=== PATIENT | female | born 1970 | race Caucasian/White ===

== ENCOUNTER → 2018-01-17 15:49 | Outpatient (CLI) | payer BC, SELFPAY ==
[2018-01-17 16:06] LABS: Basophils % 0.8 % (0.1-2.0); Eosinophils # 0.1 K/mm3 (0.0-0.4); Eosinophils % 2.1 % (0.1-12.0); Hemoglobin 12.1 g/dL (12.2-16.2); Lymphocytes # 1.7 K/mm3 (0.7-4.5); Lymphocytes % 32.6 K/mm3 (10-50); Mean Corpuscular HGB Conc 32.8 g/dL (31.8-35.4); Mean Corpuscular Hemoglobin 29.6 pg (27.0-31.2); Mean Corpuscular Volume 90.1 fl (81-99); Mean Platelet Volume 8.6 fl (7.4-10.4); Monocytes # 0.2 K/mm3 (0.1-1.0); Monocytes % 3.6 % (1.7-9.3); Neutrophils # 3.2 K/mm3 (1.8-7.8); Platelet Count 231 K/mm3 (142-424); Red Cell Distribution Width 15.2 % (11.5-17.5); White Blood Count 5.3 K/mm3 (4.8-10.8)
[2018-01-17 17:49] LABS: Hemoglobin A1C 5.1 % (0.0-7.0)
[2018-01-17 17:59] LABS: Alanine Aminotransferase 22 U/L (12-78); Albumin Level 3.4 gm/dL (3.4-5.0); Albumin/Globulin Ratio 1.1 (1.1-1.8); Alkaline Phosphatase 101 U/L (46-116); Anion Gap 11.9 mEq/L (5-15); Aspartate Amino Transferase 14 U/L (15-37); Bilirubin,Total 0.7 mg/dL (0.2-1.0); Blood Urea Nitrogen 7 mg/dL (7-18); Calcium 8.8 mg/dL (8.5-10.1); Carbon Dioxide 27 mmol/L (21.0-32.0); Chloride 109 mmol/L (98-107); Chol/HDL Ratio 2.9 (1-3.5); Cholesterol 166 mg/dL (140-200); Creatinine,Serum 0.76 mg/dL (0.55-1.02); Estimated Glomerular Filt Rate 82 ml/min (>60); GFR (African American) 99 ML/MIN (>60); Globulin 3.1 gm/dl (1.3-3.2); Glucose 77 mg/dL (74-106); HDL Cholesterol 58 mg/dL (29-89); LDL Cholesterol 93 mg/dL (0-130); Potassium 3.9 mmoL/L (3.5-5.1); Sodium 144 mmol/L (136-145); Total Protein,Serum 6.5 gm/dL (6.4-8.2); Triglycerides 73 mg/dL (30-200); VLDL Cholesterol 15 mg/dL (0-40)
== END ==
PROVIDERS: Nurse Practitioner Family; PCP Emergency Medicine; Visit Provider Emergency Medicine
DX: Z00.00 Encounter for general adult medical examination without abnormal findings (principal); Z13.220 Encounter for screening for lipoid disorders
CPT/HCPCS: 36415; 80053; 80061; 83036; 85025

== ENCOUNTER → 2018-09-04 18:43 | Outpatient (CLI) | payer BC, SELFPAY ==
--- NOTE | 2018-09-04 19:07 | XR_ITS ---
XR foot wt bearing RT 3V HISTORY: ITS.REASON: foot pain ORDERING PHYSICIAN: Red Jean Baptiste APRN PATIENT AGE: 47 years COMPARISON: None FINDINGS: No fracture or dislocation. No lytic or blastic change. There is normal mineralization.. The joint spaces are well-preserved. No significant degenerative/arthritic changes. No erosive changes evident. IMPRESSION: Negative, no acute finding
--- NOTE | 2018-09-04 19:07 | XR_ITS ---
XR foot wt bearing LT 3V HISTORY: Left foot pain ITS.REASON: foot pain ORDERING PHYSICIAN: Red Jean Baptiste APRN PATIENT AGE: 47 years COMPARISON: None FINDINGS: There is minimal hallux valgus with bony hypertrophic change at the distal aspect of the first metatarsal and mild soft tissue swelling consistent with bunion formation. No fracture or dislocation. No lytic or blastic change. IMPRESSION: Mild hallux valgus with bunion formation
== END ==
PROVIDERS: PCP Nurse Practitioner Family; Visit Provider Nurse Practitioner Family
DX: M79.671 Pain in right foot (principal); M79.672 Pain in left foot
CPT/HCPCS: 73630

== ENCOUNTER → 2018-12-31 16:50 | Outpatient (CLI) | payer BC, SELFPAY ==
--- NOTE | 2018-12-31 16:52 | MM_ITS ---
PROCEDURE: MM DIG SCREENING MAMM BI W/CAD CLINICAL INDICATION: Screening There is no personal or family history of breast cancer COMPARISON: DIG MAMMO BILAT SCREENING from 10/29/2012 DMDB DIG MAMM-DX INDIRA from 01/10/2016 DMSB DIG MAMM-SCREEN INDIRA W/CAD from 02/13/2017 TECHNIQUE: Standard CC and MLO images were obtained. R2 CAD reviewed. FINDINGS: Prominent somewhat heterogenic fibroglandular densities are seen in both breasts. Again noted is an asymmetric area of glandular tissue outer quadrant left breast which is stable. There is a stable density lower right axilla likely a node basically unchanged in appearance from previous studies. There are couple of stable benign-appearing microcalcifications near the nipple right breast. There is no suspicious lesion in either breast and no suspicious microcalcifications. IMPRESSION: Moderately dense parenchymal pattern with no suspicious lesions seen BI-RAD Category: 2 Benign Finding(s) FOLLOW-UP: 1YR 1 Year Follow-up (A letter has been sent to the patient regarding results of the study.) Dictated by: Dr. Edwardo Humphrey MD 01/03/2019 11:[address] Edwardo Humphrey MD in [facility] 01/03/2019 11:28
== END ==
PROVIDERS: PCP Nurse Practitioner Family; Visit Provider Emergency Medicine
DX: Z12.39 Encounter for other screening for malignant neoplasm of breast (principal)
CPT/HCPCS: 77067

== ENCOUNTER → 2019-06-17 13:23 | Outpatient (CLI) | payer BC, SELFPAY ==
--- NOTE | 2019-06-17 13:26 | XR_ITS ---
PROCEDURE: XR ANKLE WT BEARING LT MIN 3V CLINICAL INDICATION: left bunion pain, SPV COMPARISON: No exams were available for comparison FINDINGS: There is no acute fracture or dislocation. Ankle mortise is intact. IMPRESSION: No acute findings. Dictated by: Vern Quinonez 06/17/2019 15:04 Electronically signed by Vern Quinonez in [facility] 06/17/2019 15:04
--- NOTE | 2019-06-17 13:26 | XR_ITS ---
PROCEDURE: XR FOOT WT BEARING LT 3V CLINICAL INDICATION: left bunion pain, SPV COMPARISON: No exams were available for comparison FINDINGS: No fracture or dislocation. No lytic or blastic change. There is normal mineralization. There is mild osteoarthritis at the 1st metatarsophalangeal joint. No significant degenerative/arthritic changes. No erosive changes evident. Other findings:Soft tissue prominence is noted over the medial aspect of the distal 1st metatarsal. IMPRESSION: No acute findings. Dictated by: Vern Quinonez 06/17/2019 15:05 Electronically signed by Vern Quinonez in [facility] 06/17/2019 15:05
== END ==
PROVIDERS: PCP Nurse Practitioner Family; Visit Provider Nurse Practitioner
DX: M79.672 Pain in left foot (principal); M79.671 Pain in right foot
CPT/HCPCS: 73610; 73630

== ENCOUNTER → 2019-06-20 16:33 | Outpatient (CLI) | payer BC, SELFPAY ==
--- NOTE | 2019-06-20 | XR_ITS ---
PROCEDURE: XR CHEST 2V Patient Age:48Y CLINICAL HISTORY: TOBACCO USE, HYPERTENSION smoker COMPARISON: CXR CHEST(2 VIEWS-NOT PORTABLE) from 07/12/2015 FINDINGS: PA and lateral chest performed The lungs are well expanded and clear with no significant findings and no significant change since June 2015. Cardiac silhouette upper normal in size. Normal pulmonary vascularity.. Superior mediastinum and hilar regions satisfactory The lungs are clear without infiltrates, suspicious nodules, or pleural effusions.. Stable small 5 mm calcified granuloma at the left upper lobe with likely small calcified hilar nodes reflect old granulomatous disease No acute bony abnormalities. Chest wall and T-spine satisfactory and stable intact. IMPRESSION: Stable chest. Lungs clear No active cardiopulmonary disease Dictated by: Charlie Rivera MD 06/21/2019 12:54 Electronically signed by Charlie Rivera MD in [facility] 06/21/2019 12:54
--- NOTE | 2019-06-20 | ECG_ITS ---
APPROVED REPORT Exam: Resting ECG HR:72 bpm ECG Measurements Heart Rate 72 AXES KS 128 P 41 QRSd 92 QRS 76 QT 412 T 62 QTc 451 <Conclusion> Normal sinus rhythm Normal ECG Electronically signed by : Freddy Ruiz, 06/21/2019 13:08:46
[2019-06-20 16:50] LABS: Basophils % 0.6 % (0.1-2.0); Eosinophils # 0.1 K/mm3 (0.0-0.4); Eosinophils % 2.4 % (0.1-12.0); Hematocrit 40.3 % (37.0-47.0); Hemoglobin 13.9 g/dL (12.2-16.2); Lymphocytes # 1.9 K/mm3 (0.7-4.5); Lymphocytes % 34.9 % (10-50); Mean Corpuscular HGB Conc 34.4 g/dL (31.8-35.4); Mean Corpuscular Hemoglobin 31.9 pg (27.0-31.2); Mean Corpuscular Volume 92.8 fl (81-99); Mean Platelet Volume 9.2 fl (7.4-10.4); Monocytes # 0.2 K/mm3 (0.1-1.0); Neutrophils # 3.1 K/mm3 (1.8-7.8); Neutrophils % 58.1 % (37.0-80.0); Platelet Count 229 K/mm3 (142-424); Red Blood Count 4.34 M/mm3 (4.20-5.40); Red Cell Distribution Width 12.8 % (11.5-17.5); White Blood Count 5.3 K/mm3 (4.8-10.8)
[2019-06-20 17:51] LABS: Chloride 106 mmol/L (98-107); Potassium 4.1 mmoL/L (3.5-5.1); Sodium 141 mmol/L (136-145)
[2019-06-20 17:53] LABS: Blood Urea Nitrogen 9 mg/dl (7-17); Estimated Glomerular Filt Rate 89 ml/min (>60); GFR (African American) 108 ML/MIN (>60)
[2019-06-20 17:54] LABS: Alanine Aminotransferase 22 U/L (12-78); Albumin/Globulin Ratio 1.5 (1.1-1.8); Alkaline Phosphatase 78 U/L (38-126); Anion Gap 9.1 mEq/L (5-15); Aspartate Amino Transferase 27 U/L (14-36); Bilirubin,Total 0.4 mg/dl (0.2-1.3); Calcium 9.8 mg/dl (8.4-10.2); Carbon Dioxide 30 mmol/L (22.0-30.0); Globulin 2.6 g/dL (1.3-3.2); Glucose 83 mg/dl (74-100); Total Protein,Serum 6.6 g/dl (6.3-8.2)
[2019-06-24 08:03] LABS: Vitamin D 25 Hydroxy 35.8 ng/mL (30.0-100.0)
== END ==
PROVIDERS: Visit Provider Podiatrist
DX: Z01.818 Encounter for other preprocedural examination (principal)
CPT/HCPCS: 36415; 71046; 80053; 80323; 82652; 85025; 93005

== ENCOUNTER → 2019-06-25 11:06 | Outpatient (CLI) | payer BC, SELFPAY ==
--- NOTE | 2019-06-25 11:06 | MR_ITS ---
PROCEDURE: MR ANKLE LT WO/W CON CLINICAL INDICATION: ankle pain, chronic Posterior tibial tendon dysfunction, hallux valgus ankle instability, surgical, anterior talofibular ligament sprain, ankle sprain COMPARISON: XR FOOT WT BEARING LT 3V from 06/17/2019 TECHNIQUE: Routine multiplanar multi echo sequences are performed without and with gadolinium enhancement. FINDINGS: No bone bruise or fracture is evident. Talar dome has an unremarkable appearance. The ankle mortise is well preserved. On axial STIR image number 11 series 3 there is a faint curvilinear area of increased T2 signal along the lateral aspect of the posterior tibial tendon and could represent a small intrasubstance tear. A complete tear is not present. The flexor digitorum longus, flexor hallucis longus, and peroneal tendons have an unremarkable appearance as does the Achilles tendon as well as the anterior tendons about the ankle. The tibiofibular tendons, ATFL, and PT FL are intact. Deltoid ligament has a somewhat heterogeneous appearance. Sprain or partial tear is a consideration. Spring ligament has an unremarkable appearance. There is a small fluid collection along the posterior aspect of talocalcaneal joint and the anterior tibial talar joint IMPRESSION: 1. Possible partial intrasubstance tear of the posterior tibialis tendon just distal to the tip of the medial malleolar region. 2. There is some heterogeneous signal intensity of the deltoid ligament which could be due to partial tear or sprain. 3. Small ankle joint effusion Dictated by: Janes Salgado MD 06/27/2019 11:01 Electronically signed by Janes Salgado MD in [place] 06/27/2019 11:01
== END ==
PROVIDERS: PCP Nurse Practitioner Family; Visit Provider Podiatrist
DX: G89.29 Other chronic pain (principal); M25.572 Pain in left ankle and joints of left foot; M76.822 Posterior tibial tendinitis, left leg; S93.432S Sprain of tibiofibular ligament of left ankle, sequela
CPT/HCPCS: 73723; A9576

== ENCOUNTER → 2019-09-23 07:06 | Outpatient (CLI) | payer BC, SELFPAY ==
[2019-09-23 08:03] LABS: Basophils % 0.8 % (0.1-2.0); Eosinophils # 0.2 K/mm3 (0.0-0.4); Eosinophils % 2.6 % (0.1-12.0); Hematocrit 38.9 % (37.0-47.0); Hemoglobin 13.4 g/dL (12.2-16.2); Lymphocytes # 1.6 K/mm3 (0.7-4.5); Lymphocytes % 29.2 % (10-50); Mean Corpuscular HGB Conc 34.4 g/dL (31.8-35.4); Mean Corpuscular Hemoglobin 32.5 pg (27.0-31.2); Mean Corpuscular Volume 94.3 fl (81-99); Mean Platelet Volume 8.6 fl (7.4-10.4); Monocytes # 0.3 K/mm3 (0.1-1.0); Neutrophils # 3.5 K/mm3 (1.8-7.8); Neutrophils % 61.5 % (37.0-80.0); Platelet Count 223 K/mm3 (142-424); Red Blood Count 4.13 M/mm3 (4.20-5.40); Red Cell Distribution Width 13.2 % (11.5-17.5); White Blood Count 5.6 K/mm3 (4.8-10.8)
[2019-09-23 09:16] LABS: Coronavirus 19 IgG Antibody Positive (Negative); Coronavirus 19 IgM Antibody Negative (Negative)
[2019-09-23 09:25] LABS: Chloride 106 mmol/L (98-107)
[2019-09-23 09:26] LABS: Sodium 140 mmol/L (136-145)
[2019-09-23 09:28] LABS: Alanine Aminotransferase 36 U/L (12-78); Aspartate Amino Transferase 30 U/L (14-36); Blood Urea Nitrogen 10 mg/dl (7-17); Estimated Glomerular Filt Rate 77 ml/min (>60); GFR (African American) 93 ML/MIN (>60)
[2019-09-23 09:29] LABS: Albumin Level 3.5 g/dl (3.5-5.0); Albumin/Globulin Ratio 1.3 (1.1-1.8); Alkaline Phosphatase 119 U/L (38-126); Bilirubin,Total 0.6 mg/dl (0.2-1.3); Calcium 9.8 mg/dl (8.4-10.2); Carbon Dioxide 31 mmol/L (22.0-30.0); Globulin 2.7 g/dL (1.3-3.2); Glucose 83 mg/dl (74-100); Total Protein,Serum 6.2 g/dl (6.3-8.2)
[2019-09-24 14:33] LABS: Vitamin D 25 Hydroxy 29.5 ng/mL (30.0-100.0)
[2019-10-02 11:56] LABS: Nicotine 23.6
[2019-10-02 11:57] LABS: Cotinine 221.5
== END ==
PROVIDERS: Visit Provider Podiatrist
DX: Z01.818 Encounter for other preprocedural examination (principal)
CPT/HCPCS: 36415; 80053; 80323; 82652; 85025; 86328

== ENCOUNTER 2019-09-24 06:47 | Day surgery (SDC) | payer BC, SELFPAY ==
--- NOTE | 2019-09-19 08:53 | SUR.PREOP ---
09/18/2019--PHONE CALL MADE TO PATIENT. PATIENT UNDERSTANDS THAT LAB WORK AND COVID TESTING NEEDS TO BE COMPLETED @ 0700 ON 09/23/2019. PATIENT UNDERSTANDS IF LAB WORK AND COVID-19 TESTS ARE NOT COMPLETED BY 12PM ON THAT DATE, THE SURGERY SCHEDULED WILL BE CANCELLED AND RESCHEDULED FOR ANOTHER TIME.
[2019-09-23 13:12] VITALS: BMI 27.1
[2019-09-24] VITALS (14 sets, daily range): BP systolic 119–156; BP diastolic 65–91; PULSE 83–103; RESP 12–18; TEMP 36.6–43; O2SAT 91–98
[2019-09-24 07:04] LABS: Adenovirus,PCR Not Detected (NotDetected); Bordetella Pertussis Not Detected (NotDetected); Chlamydophila Pneumoniae, PCR Not Detected (NotDetected); Coronavirus 19, PCR Not Detected (NotDetected); Coronavirus 229E Not Detected (NotDetected); Coronavirus NL63 Not Detected (NotDetected); Coronavirus OC43 Not Detected (NotDetected); Coronovirus HKU1,PCR Not Detected (NotDetected); Human Metapneumovirus Not Detected (NotDetected); Influenza A, PCR Not Detected (NotDetected); Influenza AH1, 2009 Not Detected (NotDetected); Influenza AH1, PCR Not Detected (NotDetected); Influenza AH3,PCR Not Detected (NotDetected); Influenza B, PCR Not Detected (NotDetected); Mycoplasma Pneumoniae, PCR Not Detected (NotDected); Parainfluenza 1, PCR Not Detected (NotDetected); Parainfluenza 2, PCR Not Detected (NotDetected); Parainfluenza 3, PCR Not Detected (NotDetected); Parainfluenza 4, PCR Not Detected (NotDetected); Respiratory Syncytial Virus Not Detected (NotDetected); Rhinovirus/Enterovirus Not Detected (NotDetected)
[2019-09-24 08:51] LABS: HCG Qualitative, Serum Negative (Negative)
--- NOTE | 2019-09-24 10:04 | HMH.OPNOTE ---
Date of procedure: 09/24/19 Pre-op Diagnosis:: 1. Left hallux abductovalgus deformity 2. Left PTTD 3. Left gastrocnemius equinus 4. Left chronic ankle instability 5. Left history of ankle sprain 6. Left pes planus 7. Left equinus contracture 8. Left foot osteoarthritis 9. Left peroneal tendon tear 10. Left ankle cyst Post-op Diagnosis:: Same Procedure performed:: 1. Left Lapidus bunionectomy 2. Left repair posterior tibial tendon tear 3. Left gastrocnemius recession 4. Left foot/ankle synovectomy 5. Left repair of peroneal tendon tear (longus and brevis) 6. Left repair lateral ankle ligaments, modified Brostrum ankle stabilization 7. Left syndesmosis repair/ORIF 8. Left Pablo osteotomy 9. Left autograft harvest 10. Left deltoid ligament repair 11. Left medial ankle arthrotomy 12. Left excision of synovial cyst 13. Left application of amnitoic graft 14. Left application of posterior splint Surgeon:: Maria L Dangelo DPM SCREW CUTTER:: Mahamed Peralta Anesthesia: GETA, regional (L popliteal, saph block) Estimated blood loss (mL): 50 Clinical Note:: Mrs Daniels is a 48F with left hallux valgus, OA, PTTD, equinus, chronic ankle instability. She was scheduled for surgery several months ago but postponed due to COVID. X-rays 3 views left foot and ankle taken 06/17/19 evaluated by myself. Report noted. Hallux valgus deformity with minimal flexion deformity of the toes. Early spurring and degenerative changes noted to the first metatarsal head. There are mild hypertrophic changes at the distal aspect of the 1st metatarsal. Small subchondral cyst is present at the head of the 1st metatarsal. MRI left ankle w/wout contrast: to evaluate for left PTTD, lateral ankle ligaments and surgical planning. Indications: Worsening foot pain, bunion, lateral ankle instability, weakness. Evaluate for sprain/tear to the deltoid, ATFL/CFL and syndesmosis sprain. MRI needed for surgical planning for preop and intraoperative fixation options. We discussed x-rays, and planned left ankle MRI. We discussed conservative versus surgical treatment options. Conservative treatment options include change shoe wear, prefab or custom molded inserts, strapping, taping and padding. She has failed that and NSAIDs, ice and elevate for pain and swelling. The patient has elected to proceed with surgery because they have failed conservative treatment and continue to have pain and worsening symptoms affecting daily activities. The patient has been instructed on the planned procedure, all risk versus benefits of the procedure to include bleeding, infection, nerve and blood vessel damage, need for further surgery, delay in healing of soft tissue or bone, failure of bones to heal, non-union, mal-union, prolonged pain and recovery, prolonged swelling, CRPS/RSD, DVT and anesthetic complications. No guarantees were given. All questions fully answered. The patient verbalized understanding and agreed to proceed with surgery. Written consent was obtained. Medical clearance per PCP, Dr. Jalloh. Necessary labs and pre-op testing ordered: CBC, CMP, EKG, CXR, nicotine, vitamin D. We discussed risks of smoking and its effect on wound and bone healing.We also discussed DVT/PE and her risk factors of immobilization, recommend aspirin daily post op. e-Rx for Zofran 4mg, Motrin 800mg #60, vit D, [place] 7.5/325 (had itching with Percocet). Patient will need crutches. Operative findings:: Equinus contracture noted. Lateral ankle instability with talar tilt and positive anterior drawer. Posterior tibial tendon had a longitudinal tear just proximal and behind the medial malleolus extending distal toward the insertion. Peroneal tendons both the brevis and longus had tears. Longitudinal tear to the longus. The brevis had a split tear with a low-lying muscle belly. Synovitis noted throughout the ankle as well as the tendon sheath. There was a synovial cyst located to the lateral ankle. Cartilage erosion and wear to the medial and lateral t
--- NOTE | 2019-09-24 11:26 | HMH.ANESCL ---
[facility] Anesthesia Checklist - Patient Identification Patient Identification: Arm Band, Verbal (Name & ) - Structural Data Admitted From: Home Planned Operative Procedure/s: Left lapidus bunionectomy, repair posterior tibial tendon, gastroc recessio Consent for Planned Operative Procedure(s) Verified: Yes Verified Documents: Surgical Consent, History and Physical - NPO Status Verified Time NPO: 22:00 - Chart Verification Results Verified: CBC, BMP, HCG - Additional verifications Anesthesia Reactions: No Hx Blood Transfusions: No Blood Transfusion Reaction: No - Airway Assessment C-Spine Mobility Assessed: Yes TMJ Mobility Assessed: Yes Dentition: Dentures-good fit (upper denture, removed) - Neurological Assessment Level of Consciousness: Awake, Alert, Appropriate, Follows Commands Hx Seizures: No Numbness or tingling in extremities: No - Anesthesia Plan Anesthesia Risk discussed: Yes Anesthesia Plan: Verified ASA Class: II Anesthesia Type: General w/block (GA LMA with left popliteal nerve block) [facility] History I have reviewed the patient's past medical history: Yes Medical History: Reports:: Migraine Denies:: Cancer, Diabetes Mellitus Type 1, Diabetes Mellitus Type 2, Internal Pacemaker, MRSA, Seizures *Have you ever received a pneumonia vaccine?: No *Have you received a flu vaccine this season?: Yes Other Medical History: Denies: Blood Transfusion Reaction Anesthesia experience/problems:: none Laterality Cases: Bilateral: Carpal Tunnel Release Other Surgeries: Yes: Tubal Ligation. No: Pacemaker Amputation: No Fractures: No - *Social History Educational Level: Completed GED/General Educational Development Smoking Status: Current every day smoker Tobacco Type: cigarettes # Packs/Day (cigarettes): 1 Alcohol Intake: never Substance Use Type: denies use *Occupational Status:: employed Housing: house Household Members: family *Travel in the last 8 weeks: Inside the [place] Family Hx:: No significant family history
--- NOTE | 2019-09-24 14:00 | XR_ITS ---
PROCEDURE: XR FOOT LT MIN 3V CLINICAL INDICATION: Post op HAV Follow-up surgery COMPARISON: XR FOOT WT BEARING LT 3V from 06/17/2019 XR FOOT LT 2V from 09/24/2019 FINDINGS: Posterior splint is in place. Status post 1st metatarsal tarsal fusion with dorsal bone plate. Transverse screws present at the base of the 1st and 2nd metatarsals. There is good alignment. A metallic staple is present at the distal aspect of the proximal phalanx of the great toe with a lucent defect at this area. IMPRESSION: Postsurgical changes as described above Dictated by: Janes Salgado MD 09/24/2019 16:07 Electronically signed by Janes Salgado MD in [place] 09/24/2019 16:07
--- NOTE | 2019-09-24 14:00 | XR_ITS ---
PROCEDURE: XR ANKLE LT 2V CLINICAL INDICATION: Post op ankle Follow-up surgery COMPARISON: No exams were available for comparison FINDINGS: There is a posterior splint in place. Synchondrosis repair with lateral bone plate at the distal fibula translucent fixator and a metallic button along the medial aspect of the distal tibia with good alignment. IMPRESSION: Good alignment status post synchondrosis repair Dictated by: Janes Salgado MD 09/24/2019 16:06 Electronically signed by Janes Salgado MD in [place] 09/24/2019 16:06
--- NOTE | 2019-09-24 14:42 | XR_ITS ---
PROCEDURE: XR FOOT LT 2V CLINICAL INDICATION: LAPIDUS Follow-up surgery COMPARISON: XR FOOT WT BEARING LT 3V from 06/17/2019 FINDINGS: Fluoroscopy time: 1.64 minutes Status post 1st metatarsal tarsal fusion with dorsal bone plate and transverse screw through the base of the 1st and 2nd metatarsals with good alignment. Medial staple is pleasant at the distal aspect of the proximal phalanx of the great toe. Other findings:Status post synchondrosis repair at the distal tib fib with good alignment IMPRESSION: Postsurgical changes Dictated by: Janes Salgado MD 09/24/2019 14:51 Electronically signed by Janes Salgado MD in [place] 09/24/2019 14:51
[2019-09-24 14:54] LABS: Microscopic,Cath URINE MICROSCOPIC (MICROSCOPIC)
[2019-09-24 15:49] LABS: Appearance,Urine/Cath CLEAR (Clear); Bilirubin,Cath Negative (Negative); Blood, Urine/Cath Negative (Negative); Color,Urine/Cath YELLOW (Yellow); Glucose,Urine/Cath (UA) Negative (Negative); Ketones,Urine/Cath Negative (Negative); Leukocyte Esterase,Cath Negative (Negative); Nitrate,Cath Negative (Negative); Protein,Urine/Cath Negative (Negative); Urobilinogen,Cath 0.2 EU/dl (0.2)
--- NOTE | 2019-09-24 15:50 | HMH.ANESI ---
[facility] Anesthesia Record Part I Intake, IV Amount: 1,400 Estimated blood loss (mL): 50 Urine output (mL): 800 Blood Products used (#): none Blood Pressure: 156/84 SaO2: 94 Pulse Rate: 103 Respiratory Rate: 12 Temperature: 99.5 F Patient is:: Awake, Drowsy, Stable Stable to PACU at:: 15:40
--- NOTE | 2019-09-24 16:31 | PC.NURSE ---
162-detailed report called to DAE Pearson per DAE Moralez 162-pt transported to post op via stretcher w/geni rails up per DAE Moralez, vss, pt stable
[2019-09-24 16:56] LABS: Squamous Epithelial Ur./Cath Occasional #/hpf (0-5); WBC,Urine/Cath Occasional #/hpf (0-3)
--- NOTE | 2019-09-24 21:09 | HMH.ANESII ---
[facility] Anesthesia Record Part II Discharge Time: 17:31 Destination: Home PACU nurse assessment reviewed?: Yes Patient Condition:: Good Anesthesia Complications:: None Swallowing reflex intact?: Yes Cyanosis?: No Blood Pressure: 119/67 Pulse Rate: 83 Temperature: 98.0 F Mental Status: Alert & Oriented Pain level:: 0 Nausea and/or vomitting:: None Intake, IV Amount: 0 Comments:: RR 18, O2sat 95% on RA
== END 2019-09-24 17:31 | disposition home or self-care (01) ==
PROVIDERS: PCP Nurse Practitioner Family; Visit Provider Podiatrist
PROC: (CPT 28298; principal; 2019-09-24 09:45)
DX: M20.12 Hallux valgus (acquired), left foot (principal); M19.072 Primary osteoarthritis, left ankle and foot; M24.572 Contracture, left ankle; M76.822 Posterior tibial tendinitis, left leg; M21.42 Flat foot [pes planus] (acquired), left foot; M25.372 Other instability, left ankle; M21.6X2 Other acquired deformities of left foot; Z72.0 Tobacco use; M66.88 Spontaneous rupture of other tendons, other sites; M24.472 Recurrent dislocation, left ankle
CPT/HCPCS: 28298; 27687; 28288; 27698; 27829; 27625; C5275; 73600; 73620; 73630; 76000; 81001; 84703; 87581; 87633; 87798; 96374; C1713; C1762; C1776; J2405; Q4211

== ENCOUNTER → 2019-10-14 17:42 | Outpatient (CLI) | payer BC, SELFPAY | PROVIDERS: Visit Provider Podiatrist | DX: Z98.890 Other specified postprocedural states (principal) | CPT/HCPCS: 87070; 87077; 87205 ==

== ENCOUNTER → 2019-10-21 10:10 | Outpatient (CLI) | payer BC, SELFPAY ==
--- NOTE | 2019-10-21 10:25 | XR_ITS ---
PROCEDURE: XR FOOT WT BEARING LT 3V CLINICAL INDICATION: post-op COMPARISON: XR FOOT WT BEARING LT 3V from 06/17/2019 XR FOOT LT 2V from 09/24/2019 XR FOOT LT MIN 3V from 09/24/2019 FINDINGS: There is no interval fracture or dislocation. Dorsal plate and screw ankylosis of the 1st metatarsal tarsal joint and a staple within the distal medial cortex of the 1st proximal metatarsal is again noted. A transverse fixation screw is again demonstrated within the proximal diaphyses of the 1st and 2nd digits. Soft tissues are unremarkable. IMPRESSION: Stable postop changes as above. Dictated by: Mike Holman 10/21/2019 13:33 Electronically signed by Mike Holman in [facility] 10/21/2019 13:33
--- NOTE | 2019-10-21 10:25 | XR_ITS ---
PROCEDURE: XR ANKLE WT BEARING LT MIN 3V CLINICAL INDICATION: post-op COMPARISON: XR ANKLE WT BEARING LT MIN 3V from 06/17/2019 XR ANKLE LT 2V from 09/24/2019 FINDINGS: There are no interval changes. Synchondrosis repair with lateral bone plate and distal fibula translucent fixator and a metallic button within the medial aspect of the distal tibia is again noted in good alignment. Ankle mortise is intact. Soft tissues are unremarkable. IMPRESSION: Stable post synchondrosis repair as above Dictated by: Mike Holman 10/21/2019 13:30 Electronically signed by Mike Holman in [facility] 10/21/2019 13:30
== END ==
PROVIDERS: PCP Nurse Practitioner Family; Visit Provider Podiatrist
DX: Z98.890 Other specified postprocedural states (principal); M25.372 Other instability, left ankle
CPT/HCPCS: 73610; 73630

== ENCOUNTER 2019-12-25 16:00 | Outpatient (RCR) | payer BC, MEDICAID, SELFPAY | END 2019-12-25 16:05 | disposition home or self-care (01) | LOC: PT 16:00 | PROVIDERS: PCP Nurse Practitioner Family; Visit Provider Podiatrist | DX: M25.372 Other instability, left ankle; Z98.890 Other specified postprocedural states | CPT/HCPCS: 97110; 97112; 97140; 97163; 97164; 97760 ==

== ENCOUNTER → 2019-12-30 16:47 | Outpatient (CLI) | payer BC, MEDICAID, SELFPAY ==
--- NOTE | 2019-12-30 16:47 | MM_ITS ---
PROCEDURE: MM DIG SCREENING MAMM BI W/CAD Digital Breast Tomosynthesis Included CLINICAL INDICATION: screening There is no personal or family history of breast cancer. Patient currently is on estrogen. COMPARISON: MG DMDB DIG MAMM-DX INDIRA from 01/10/2016 MG DMSB DIG MAMM-SCREEN INDIRA W/CAD from 02/13/2017 MG MM DIG SCREENING MAMM BI W/CAD from 12/31/2018 TECHNIQUE: Standard CC and MLO images and 3D Tomosynthesis was obtained. R2 CAD reviewed. FINDINGS: There is a diffusely dense and somewhat heterogenic parenchymal pattern bilaterally. There are couple of benign-appearing microcalcifications right breast. There is no suspicious lesion in either breast and no suspicious microcalcifications. IMPRESSION: Moderately dense parenchymal pattern with no suspicious lesions seen BI-RAD Category: 2 Benign Finding(s) FOLLOW-UP: 1YR 1 Year Follow-up (A letter has been sent to the patient regarding results of the study.) Dictated by: Dr. Edwardo Humphrey MD 01/01/2020 12:02 Dr. Edwardo Humphrey MD in [place] 01/01/2020 12:02
== END ==
PROVIDERS: PCP Nurse Practitioner Family; Visit Provider Nurse Practitioner Family
DX: Z12.31 Encounter for screening mammogram for malignant neoplasm of breast (principal)
CPT/HCPCS: 77063; 77067

== ENCOUNTER → 2020-02-04 09:31 | Outpatient (CLI) | payer BC, MEDICAID, SELFPAY ==
--- NOTE | 2020-02-04 09:39 | XR_ITS ---
PROCEDURE: XR FOOT WT BEARING LT 3V CLINICAL INDICATION: post-op pain COMPARISON: CR XR FOOT WT BEARING LT 3V from 06/17/2019 CR XR FOOT LT 2V from 09/24/2019 CR XR FOOT LT MIN 3V from 09/24/2019 CR XR FOOT WT BEARING LT 3V from 10/21/2019 FINDINGS: Status post fusion of the 1st metatarsal tarsal joint with medial bone plate and multiple cortical screws. 1 transverse screw extends from the base of the 1st metatarsal laterally almost completely through the proximal aspect of the 2nd metatarsal. There is some minimal blistering of the cortex lateral to this screw hole. This is not significantly changed. There has been osteotomy with a medial staple at the distal aspect of the proximal phalanx of the great toe. Postsurgical changes are present of the ankle is well. There is mild pes planus. IMPRESSION: No change involving the postsurgical changes of the first metatarsal tarsal junction, proximal phalanx great toe, and proximal aspect of the 2nd metatarsal with pes planus Dictated by: Janes Salgado MD 02/04/2020 16:12 Janes Salgado MD in [place] 02/04/2020 16:12
== END ==
PROVIDERS: PCP Nurse Practitioner Family; Visit Provider Podiatrist
DX: Z98.890 Other specified postprocedural states (principal); M79.672 Pain in left foot
CPT/HCPCS: 73630

== ENCOUNTER → 2020-02-05 17:40 | Outpatient (CLI) | payer BC, MEDICAID, SELFPAY ==
[2020-02-05 18:04] LABS: Basophils % 0.3 % (0.1-2.0); Eosinophils % 0.3 % (0.1-12.0); Hematocrit 43.7 % (37.0-47.0); Hemoglobin 13.7 g/dL (12.2-16.2); Lymphocytes # 2.2 K/mm3 (0.7-4.5); Mean Corpuscular HGB Conc 31.2 g/dL (31.8-35.4); Mean Corpuscular Volume 92.9 fl (81-99); Mean Platelet Volume 9.7 fl (7.4-10.4); Monocytes # 0.7 K/mm3 (0.1-1.0); Monocytes % 4.9 % (1.7-9.3); Neutrophils # 10.8 K/mm3 (1.8-7.8); Neutrophils % 78.6 % (37.0-80.0); Platelet Count 252 K/mm3 (142-424); Red Blood Count 4.71 M/mm3 (4.20-5.40); Red Cell Distribution Width 13.5 % (11.5-17.5); White Blood Count 13.8 K/mm3 (4.8-10.8)
[2020-02-05 18:25] LABS: Alanine Aminotransferase 52 U/L (12-78); Albumin Level 4.3 g/dl (3.5-5.0); Albumin/Globulin Ratio 1.5 (1.1-1.8); Alkaline Phosphatase 159 U/L (38-126); Aspartate Amino Transferase 42 U/L (14-36); Bilirubin,Total 0.5 mg/dl (0.2-1.3); Blood Urea Nitrogen 13 mg/dl (7-17); Calcium 9.6 mg/dl (8.4-10.2); Carbon Dioxide 31 mmol/L (22.0-30.0); Chloride 107 mmol/L (98-107); Chol/HDL Ratio 5.3 (1-3.5); Cholesterol 260 mg/dl (140-200); Estimated Glomerular Filt Rate 76 ml/min (>60); GFR (African American) 92 ML/MIN (>60); Globulin 2.9 g/dL (1.3-3.2); Glucose 96 mg/dl (74-100); HDL Cholesterol 49 mg/dl (40-60); Sodium 144 mmol/L (136-145); Total Protein,Serum 7.2 g/dl (6.3-8.2); Triglycerides 375 mg/dl (30-150); VLDL Cholesterol 75 mg/dL (0-40)
[2020-02-05 18:36] LABS: Hemoglobin A1C 5.1 % (4.0-6.0)
[2020-02-05 18:37] LABS: Direct LDL Cholesterol 155.02 mg/dL (100-129)
[2020-02-05 18:42] LABS: T4 (Thyroxine) 7.6 ug/dl (5.53-11.0)
[2020-02-05 18:56] LABS: Thyroid Stimulating Hormone 0.63 uIU/mL (0.465-4.68)
[2020-02-05 19:15] LABS: Vitamin B12 941 pg/mL (239-931)
== END ==
PROVIDERS: Visit Provider Nurse Practitioner Family
DX: Z00.00 Encounter for general adult medical examination without abnormal findings (principal)
CPT/HCPCS: 80053; 80061; 82607; 83036; 84436; 84443; 85025

== ENCOUNTER → 2020-02-10 14:42 | Outpatient (CLI) | payer BC, MEDICAID, SELFPAY ==
--- NOTE | 2020-02-10 14:42 | CT_ITS ---
PROCEDURE: CT FOOT LT WO CON CLINICAL HISTORY: foot pain c/o left foot pain on top of foot, foot sx back in august 2019 evaluate for stress fracture, evaluate for nonunion COMPARISON: CR XR FOOT WT BEARING LT 3V from 06/17/2019 CR XR FOOT WT BEARING LT 3V from 02/04/2020 TECHNIQUE: Axial images obtained with sagittal and coronal reformats. All CT scans at the facility use one or more dose reduction, viz: automated exposure control, ma/kV adjustment per patient size (including targeted exams where dose is matched to indication, i.e. head), or iterative reconstruction technique. FINDINGS: Status post syndesmotic repair with lateral fibular bone plate translucent fixator and metallic button along medial aspect of the distal tibia.. There is a medial bone plate at the 1st metatarsal tarsal junction with cortical screws 1 of which extends into the proximal aspect of the 2nd metatarsal. This screw extends to the lateral cortex of the 2nd metatarsal with some minimal blistering of the cortex laterally at this level. There are no areas bony sclerosis that would indicate a chronic stress fracture. There is a lucency oriented obliquely through the medial cuneiform with well-circumscribed margins and could be related to an older screw hole tract performed at the time of the surgery. No acute fractures evident. There is fusion of the 1st metatarsal tarsal junction superiorly and in the mid aspect with some residual joint space noted inferiorly. No hardware malfunction apparent. There are mild osteoarthritic changes of the tarsal bones. There is mild soft tissue swelling medially and laterally. IMPRESSION: Status post 1st MTP fusion as described above. Please see above for detailed description No evidence of stress fracture or other acute anomaly. Dictated by: Janes Salgado MD 02/12/2020 10:03 Janes Salgado MD in [facility] 02/12/2020 10:03
== END ==
PROVIDERS: PCP Nurse Practitioner Family; Visit Provider Podiatrist
DX: M79.672 Pain in left foot (principal)
CPT/HCPCS: 73700

== ENCOUNTER → 2020-03-30 10:28 | Outpatient (CLI) | payer BC, MEDICAID, SELFPAY ==
[2020-03-31 15:55] LABS: Covid-19 Nasal PCR Sendout Lex Not Detected
== END ==
PROVIDERS: PCP Nurse Practitioner Family; Visit Provider Nurse Practitioner Family
DX: Z03.818 Encounter for observation for suspected exposure to other biological agents ruled out (principal)
CPT/HCPCS: U0004

== ENCOUNTER → 2020-08-10 16:27 | Outpatient (CLI) | payer BC, OTHER, SELFPAY ==
--- NOTE | 2020-08-10 16:32 | XR_ITS ---
PROCEDURE: XR ANKLE WT BEARING LT MIN 3V CLINICAL INDICATION: post-op Follow-up surgery COMPARISON: CR XR ANKLE WT BEARING LT MIN 3V from 06/17/2019 CR XR ANKLE LT 2V from 09/24/2019 CR XR ANKLE WT BEARING LT MIN 3V from 10/21/2019 CR XR FOOT WT BEARING LT 3V from 02/04/2020 CR XR FOOT WT BEARING LT 3V from 08/10/2020 FINDINGS: Status post ORIF distal tib fib with translucent fixator. The medial button at the tibia is slightly subluxed superiorly. The ankle mortise appears intact with no evidence widening. Minimal hypertrophic changes are present at the distal tibia and fibula. Osteoarthritic changes are present at the 1st MTP joint with bony hypertrophy at the distal aspect of the 1st metatarsal. Metallic staple is present at the distal aspect of the proximal phalanx. There has been prior fusion of the 1st metatarsal tarsal joint with a medial bone plate and multiple cortical screws. Longus screw extends into the proximal aspect of the 2nd metatarsal. There is a prominent zone of lucency around that screw suggesting loosening. The joint space is still visible at the 1st metatarsal tarsal joint. There is mild pes planus. IMPRESSION: 1. Status post syndesmotic repair of the distal tib fib. The medial metallic button is slightly subluxed superiorly. 2. Status post 1st metatarsal tarsal joint effusion. Enlarging zone of lucency around the screw which extends into the proximal aspect of the 2nd metatarsal suggesting loosening or infection. Dictated by: Janes Salgado MD 08/10/2020 17:17 Janes Salgado MD in [facility] 08/10/2020 17:17
== END ==
PROVIDERS: PCP Nurse Practitioner Family; Visit Provider Nurse Practitioner
DX: Z98.890 Other specified postprocedural states (principal)
CPT/HCPCS: 73610; 73630

== ENCOUNTER → 2020-10-29 07:41 | Outpatient (CLI) | payer BC, SELFPAY ==
--- NOTE | 2020-10-29 07:41 | CT_ITS ---
PROCEDURE INFORMATION: Exam: CT Left Lower Extremity Without Contrast, Foot Exam date and time: 10/29/2020 7:41 AM Age: 49 years old Clinical indication: Pain; Foot; Left; Additional info: Left medial foot pain and pain on top of foot TECHNIQUE: Imaging protocol: CT of the Left lower extremity without contrast was performed. Exam focused on the foot. 3D rendering (Not supervised by radiologist): MIP and/or 3D reconstructed images were created by the technologist. Radiation optimization: All CT scans at this facility use at least one of these dose optimization techniques: automated exposure control; mA and/or kV adjustment per patient size (includes targeted exams where dose is matched to clinical indication); or iterative reconstruction. COMPARISON: 1. CT FOOT LT WO CON 02/10/2020 3:00 PM 2. CR XR FOOT WT BEARING LT 3V 08/10/2020 4:38 PM 3. CR XR FOOT WT BEARING LT 3V 02/04/2020 9:48 AM FINDINGS: Limitations: Hardware produces streak artifact. Bones/joints: Arthrodesis of the first tarsometatarsal joint is mature early fused. Traversing hardware is intact. The screw extending from the low medial aspect of the first metatarsal base plate through the second metatarsal has a 1.4 mm of surrounding lucency that is new compared with 02/10/2020 and suggests abnormal motion (series 603/image 69). There is an equivocal mild interval increase in periosteal new bone along the cortex abutting the distal aspect of the second metatarsal screw (series 601/image 32). Intact hardware traverses the distal fibula with a tightrope repair of the syndesmosis. Well-corticated osteochondral bodies adjacent to the tip of the medial malleolus are consistent with remote unhealed fracture fragments. There is no acute fracture or dislocation. No aggressive bone lesions are present. A healed osteotomy involves the great toe proximal phalanx. 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 Soft tissues: No suspicious mass. IMPRESSION: 1. Probable abnormal motion involving the screw traversing the proximal second metatarsal suggested by 1.4 mm of new surrounding lucency. 2. Mature arthrodesis of the first tarsometatarsal joint with intact traversing hardware. 3. No complication involving distal fibular hardware and tightrope repair of the syndesmosis. 4. Healed great toe proximal phalanx osteotomy. 5. Mild primary osteoarthritis of the first metatarsophalangeal joint.
== END ==
LOC: RAD 07:41
PROVIDERS: PCP Nurse Practitioner Family; Visit Provider Podiatrist
DX: M77.52 Other enthesopathy of left foot and ankle (principal); T84.84XA Pain due to internal orthopedic prosthetic devices, implants and grafts, initial encounter; Z98.890 Other specified postprocedural states
CPT/HCPCS: 73700

== ENCOUNTER → 2020-10-29 08:19 | Outpatient (CLI) | payer BC, SELFPAY ==
[2020-10-29 08:57] LABS: Basophils % 0.6 % (0.1-2.0); Eosinophils # 0.2 K/mm3 (0.0-0.4); Eosinophils % 2.3 % (0.1-12.0); Hematocrit 39.8 % (37.0-47.0); Hemoglobin 13.6 g/dL (12.2-16.2); Lymphocytes # 2.1 K/mm3 (0.7-4.5); Lymphocytes % 28.1 % (10-50); Mean Corpuscular HGB Conc 34.1 g/dL (31.8-35.4); Mean Corpuscular Volume 93.6 fl (81-99); Mean Platelet Volume 8.8 fl (7.4-10.4); Monocytes # 0.4 K/mm3 (0.1-1.0); Monocytes % 5.4 % (1.7-9.3); Neutrophils # 4.7 K/mm3 (1.8-7.8); Neutrophils % 63.7 % (37.0-80.0); Platelet Count 217 K/mm3 (142-424); Red Blood Count 4.26 M/mm3 (4.20-5.40); Red Cell Distribution Width 13.5 % (11.5-17.5); White Blood Count 7.3 K/mm3 (4.8-10.8)
[2020-10-29 09:08] LABS: Chloride 108 mmol/L (98-107)
[2020-10-29 09:09] LABS: Potassium 4.1 mmoL/L (3.5-5.1); Sodium 144 mmol/L (136-145)
[2020-10-29 09:11] LABS: Alanine Aminotransferase 31 U/L (12-78); Albumin/Globulin Ratio 1.4 (1.1-1.8); Alkaline Phosphatase 125 U/L (38-126); Anion Gap 8.1 mEq/L (5-15); Aspartate Amino Transferase 34 U/L (14-36); Bilirubin,Total 0.4 mg/dl (0.2-1.3); Blood Urea Nitrogen 8 mg/dl (7-17); Carbon Dioxide 32 mmol/L (22.0-30.0); Estimated Glomerular Filt Rate 76 ml/min (>60); GFR (African American) 92 ML/MIN (>60); Globulin 2.9 g/dL (1.3-3.2); Total Protein,Serum 6.9 g/dl (6.3-8.2)
[2020-10-29 09:12] LABS: Calcium 9.2 mg/dl (8.4-10.2); Glucose 81 mg/dl (74-100)
[2020-10-29 09:19] LABS: Erythrocyte Sedimentation Rate 20 mm/hr (0-20)
[2020-10-29 09:52] LABS: C-Reactive Protein 4.1 mg/L (0-4)
[2020-11-09 20:57] LABS: 1,25 Dihydroxy Vitamin D 34 pg/mL (.); 1,25-Dihydroxy, Vitamin D-2 <10 pg/mL (.); 1,25-Dihydroxy, Vitamin D-3 33 pg/mL (.)
[2020-11-12 09:22] LABS: Cotinine 248.3; Nicotine 28.4
== END ==
PROVIDERS: Visit Provider Podiatrist
DX: M25.372 Other instability, left ankle (principal); M77.52 Other enthesopathy of left foot and ankle; M77.42 Metatarsalgia, left foot; R20.2 Paresthesia of skin; E66.3 Overweight; Z68.25 Body mass index [BMI] 25.0-25.9, adult; Z72.0 Tobacco use; Z98.890 Other specified postprocedural states
CPT/HCPCS: 36415; 80053; 80323; 82652; 85025; 85651; 86140

== ENCOUNTER → 2020-12-30 09:39 | Outpatient (CLI) | payer BC, SELFPAY ==
--- NOTE | 2020-12-30 09:40 | MM_ITS ---
PROCEDURE: MM DIG SCREENING MAMM BI W/CAD Digital Breast Tomosynthesis Included CLINICAL INDICATION: screening COMPARISON: US BL US BREAST-LT COMPLETE W/AXILLA from 01/10/2016 MG DMSB DIG MAMM-SCREEN INDIRA W/CAD from 02/13/2017 MG MM DIG SCREENING MAMM BI W/CAD from 12/31/2018 MG MM DIG SCREENING MAMM BI W/CAD from 12/30/2019 TECHNIQUE: Standard CC and MLO images and 3D Tomosynthesis was obtained. R2 CAD reviewed. FINDINGS: The breasts are heterogeneously dense which may obscure small masses. Right breast: No malignant appearing mass. There is a mid bilobular density in the 12 o'clock region of the right breast well-circumscribed measuring 6 x 4 mm. Spot compression views and right breast ultrasound suggested. Left breast: A macro lobulated density is present in the 2 o'clock region of the left breast measuring 8 x 6 mm. Spot compression views and ultrasound suggested. This is 6 cm posterior to the nipple. This is felt to be lateral. On the CC view however, there is an asymmetric density medially also for which spot compression views are recommended. No malignant appearing mass or malignant-appearing microcalcification of either breast. IMPRESSION: Incomplete. Bilateral spot-compression views, rolled views, and mL views suggested along with bilateral breast ultrasound BI-RAD Category: 0 Need Additional Imaging Evaluation FOLLOW-UP: IMM Immediate Follow-up Recommended (A letter has been sent to the patient regarding results of the study.) Dictated by: Janes Salgado MD 01/12/2021 07:58 Janes Salgado MD in [facility] 01/12/2021 07:58
== END ==
PROVIDERS: PCP Nurse Practitioner Family; Visit Provider Nurse Practitioner Family
DX: Z12.31 Encounter for screening mammogram for malignant neoplasm of breast (principal)
CPT/HCPCS: 77063; 77067

== ENCOUNTER → 2021-01-24 13:12 | Outpatient (CLI) | payer BC, SELFPAY ==
--- NOTE | 2021-01-24 13:12 | US_ITS ---
PROCEDURE: MM DIG MAMM BI DX W/CAD Digital Breast Tomosynthesis Included ULTRASOUND LEFT BREAST COMPLETE ULTRASOUND RIGHT BREAST COMPLETE CLINICAL INDICATION: abn mamm COMPARISON: MG MM DIG SCREENING MAMM BI W/CAD from 12/31/2018 MG MM DIG SCREENING MAMM BI W/CAD from 12/30/2019 MG MM DIG SCREENING MAMM BI W/CAD from 12/30/2020 US US BREAST RT COMPLETE from 01/24/2021 US US BREAST LT COMPLETE from 01/24/2021 TECHNIQUE: Bilateral diagnostic mammogram with problem solving views of both breasts and bilateral breast ultrasound. FINDINGS: Right breast: A bilobular well-circumscribed nodules once again noted on the MLO spot views not readily identified on the spot compression views but is felt to be nine or 10 o'clock with 1 review of the previous tomographic images as opposed to the 12 o'clock position. No suspicious lesions evident Right breast ultrasound: 6 mm cyst at 12 o'clock. 3 mm cyst at 8 o'clock. 5 mm cyst at 8 o'clock behind the nipple. No suspicious nodules apparent. Left breast: The macro lobulated lesion at the 2 o'clock position of the left breast is not well delineated on the spot compression views better seen on the tomographic images. The asymmetric density in the medial aspect of the left breast is once again noted on the spot compression view. No suspicious lesions evident Left breast ultrasound: 6 x 6 x 2 mm cyst at 3 o'clock which may correspond to the macro lobulated nodule. No nodules noted at the medial left breast. No suspicious nodules apparent. IMPRESSION: Probably benign findings. Recommend six-month mammographic and sonographic follow-up. No suspicious nodules are identified. BI-RAD Category: 3 Probably Benign Finding Short Term Follow-Up FOLLOW-UP: 6M 6 Month Follow-up (A letter has been sent to the patient regarding results of the study.) Dictated by: Janes Salgado MD 02/02/2021 10:41 Janes Salgado MD in [facility] 02/02/2021 10:41
== END ==
PROVIDERS: PCP Nurse Practitioner Family; Visit Provider Nurse Practitioner Family
DX: R92.8 Other abnormal and inconclusive findings on diagnostic imaging of breast (principal)
CPT/HCPCS: 76641; 77062; 77066; G0279

== ENCOUNTER → 2021-07-25 13:32 | Outpatient (CLI) | payer SELFPAY ==
--- NOTE | 2021-07-25 13:32 | MM_ITS ---
PROCEDURE INFORMATION: Exam: US Left Breast, Complete US Right Breast, Complete MG Bilateral Diagnostic Breast Tomosynthesis Exam date and time: 07/25/2021 2:30 PM Age: 50 years old Clinical indication: Six-month follow-up bilateral mammographic and sonographic findings, from 01/24/2021. TECHNIQUE: Imaging protocol: Complete ultrasound of all four quadrants of the Left breast and the retroareolar regions, including ultrasound of the axilla when performed. Complete ultrasound of all four quadrants of the Right breast and the retroareolar regions, including ultrasound of the axilla when performed. Bilateral Diagnostic tomosynthesis and 2D mammography including computer-aided detection (CAD) when performed. Unilateral or bilateral exam. COMPARISON: 1. MG MM DIG MAMM BI DX W/CAD 01/24/2021 1:16 PM 2. MG MM DIG SCREENING MAMM BI W/CAD 12/30/2020 10:03 AM 3. MG MM DIG SCREENING MAMM BI W/CAD 12/30/2019 4:50 PM 4. MG MM DIG SCREENING MAMM BI W/CAD 12/31/2018 5:01 PM 5. US BREAST RT COMPLETE 01/24/2021 2:07 PM 6. BR US BREAST-RT COMPLETE W/AXILLA 01/10/2016 1:55 PM 7. US BREAST LT COMPLETE 01/24/2021 1:56 PM 8. BL US BREAST-LT COMPLETE W/AXILLA 01/10/2016 2:13 PM FINDINGS: MAMMOGRAPHY: The breast tissue is composed of scattered areas of fibroglandular density. No mass. No suspicious calcifications. No developing asymmetry. No architectural distortion. Unremarkable axilla. ULTRASOUND: Bilateral sonography, all 4 quadrants, retroareolar and axilla. On the right, benign-appearing cyst at 12 o'clock measuring 0.4 cm which measured 0.4 cm on 01/24/2021. Previously noted cyst at 8 o'clock is not demonstrated. No suspicious cystic or solid mass demonstrated. Sonographically unremarkable right axillary lymph nodes. On the left, benign-appearing cyst at 3 o'clock 5 cm from the nipple measuring 0.4 cm, which measured 0.6 cm on 01/24/2021. No suspicious cystic or solid mass demonstrated. Sonographically unremarkable left axillary lymph node. IMPRESSION: Benign cystic changes. No mammographic or sonographic evidence of malignancy. Annual screening mammogram recommended unless otherwise clinically indicated. ASSESSMENT: BI-RADS Category 2: Benign
== END ==
LOC: RAD 13:32
PROVIDERS: PCP Nurse Practitioner Family; Visit Provider Nurse Practitioner Family
DX: R92.8 Other abnormal and inconclusive findings on diagnostic imaging of breast (principal)
CPT/HCPCS: 76641; 77062; 77066; G0279